=== PATIENT | male | born 1980 | race Caucasian/White ===

== ENCOUNTER 2017-10-19 12:01 | Emergency (ER) | payer OTHER ==
[2017-10-19] MEDS ORDERED: ACETAMINOPHEN EXTRA STRENGTH 500 MG TABLET ONE (12:44)
== END 2017-10-19 12:55 | disposition home or self-care (01) ==
LOC: EDH 12:01
DX: G89.29 Other chronic pain (principal); M54.5 Low back pain; Z88.8 Allergy status to other drugs, medicaments and biological substances

== ENCOUNTER 2018-04-18 20:34 | Emergency (ER) | payer OTHER | END 2018-04-18 21:30 | LOC: EDH 20:34 | DX: S50.12XA Contusion of left forearm, initial encounter (principal); S80.12XA Contusion of left lower leg, initial encounter; S00.81XA Abrasion of other part of head, initial encounter; F41.9 Anxiety disorder, unspecified; V89.2XXA Person injured in unspecified motor-vehicle accident, traffic, initial encounter; Y93.89 Activity, other specified; Y92.89 Other specified places as the place of occurrence of the external cause; Y99.8 Other external cause status ==